=== PATIENT | female | born 1960 | race Caucasian/White ===

== ENCOUNTER 2017-09-19 19:32 | Emergency (ER) | payer BC ==
[2017-09-19] MEDS ORDERED: MORPHINE SULFATE 10 MG/ML INJ IM ONE (19:38)
--- NOTE | 2017-09-19 20:08 | RADIOLOGY REPORT (SQ) ---
EXAM DESCRIPTION: WRIST LEFT 3 VIEWS COMPLETED DATE/TIME: 09/19/2017 7:51 pm REASON FOR STUDY: SPORTS INJURY COMPARISON: None. NUMBER OF VIEWS: Three views. TECHNIQUE: AP, lateral, and oblique radiographic images acquired of the left wrist. LIMITATIONS: None. FINDINGS: MINERALIZATION: Normal. BONES: Comminuted impacted fracture of the distal radius with dorsal angulation. SOFT TISSUES: No soft tissue swelling. Several small radiopaque densities may represent particles on the skin. OTHER: No other significant finding. IMPRESSION: COMMINUTED IMPACTED FRACTURE OF THE DISTAL RADIUS. TECHNICAL DOCUMENTATION: JOB ID: [id number] [employer]- All Rights Reserved
[2017-09-19] MEDS ORDERED: ONDANSETRON HCL INJ/PF 4 MG/2 ML SDV IV ONE (20:09)
[2017-09-19] MEDS ORDERED: HYDROMORPHONE HCL INJ/PF 2 MG/ML AMPULE IV ONE (20:09)
[2017-09-19] MEDS ORDERED: KETAMINE HCL INJ 500 MG/10 ML VIAL IV ONE (20:10)
[2017-09-19] MEDS ORDERED: KETAMINE HCL INJ 500 MG/10 ML VIAL ONE (20:31)
--- NOTE | 2017-09-19 20:41 | ER Document Report ---
ED General - General Chief Complaint: Arm Pain Stated Complaint: WRIST INJURY Time Seen by Provider: 09/19/17 20:08 Notes: Patient is a 57-year-old female who presents with a left wrist injury. She sustained this when playing tennis. She states he jumped up, landed on the nat[place] court causing her feet to slip out from underneath her and fall onto an outstretched left hand. States she immediately developed a severe, constant, throbbing pain to the left wrist which has been present since that time. She is right-hand dominant. She has no history of prior injuries to her left wrist. States any attempt at moving the wrist significantly worsens the pain. She did receive IV pain medication by EMS and reports that this has improved her pain somewhat. She denies any additional injuries today. TRAVEL OUTSIDE OF THE [place] IN LAST 30 DAYS: No - Related Data Allergies/Adverse Reactions: No Known Allergies Allergy (Unverified 09/19/17 19:38) Past Medical History - General Information source: Patient - Social History Smoking Status: Never Smoker Frequency of alcohol use: None Drug Abuse: None Lives with: Spouse/Significant other Family History: Reviewed & Not Pertinent Patient has suicidal ideation: No Patient has homicidal ideation: No Renal/ Medical History: Denies: Hx Peritoneal Dialysis Review of Systems - Review of Systems Notes: Constitutional: Negative for fever. Eyes: Negative for visual changes. ENT: Negative for facial injury Cardiovascular: Negative for chest injury. Respiratory: Negative for shortness of breath. Gastrointestinal: Negative for abdominal injury. Genitourinary: Negative for genital injury Musculoskeletal: Positive for left wrist injury Skin: Negative for laceration/abrasions. Neurological: Negative for head injury. Physical Exam - Vital signs Vitals: Temp Pulse Resp BP Pulse Ox 97.5 F 112 H 15 158/95 H 96 09/19/17 19:40 09/19/17 19:40 09/19/17 19:40 09/19/17 19:40 09/19/17 19:40 Interpretation: Tachycardic Notes: PHYSICAL EXAMINATION: GENERAL: Appears to be in significant pain but no acute distress HEAD: Atraumatic, normocephalic. EYES: Pupils equal round and reactive to light, extraocular movements intact, sclera anicteric, conjunctiva are normal. ENT: nares patent, oropharynx clear without exudates. Moist mucous membranes. NECK: Normal range of motion, supple without lymphadenopathy LUNGS: Breath sounds clear to auscultation bilaterally and equal. No wheezes rales or rhonchi. HEART: Regular rate and rhythm without murmurs. 2+ radial pulse bilaterally. ABDOMEN: Soft, nontender, normoactive bowel sounds. No guarding, no rebound. No masses appreciated. EXTREMITIES: Obvious deformity of the left wrist with significant swelling. NEUROLOGICAL: RMU motor and sensory function is intact bilaterally. PSYCH: Normal mood, normal affect. SKIN: Warm, Dry, normal turgor, no rashes or lesions noted. Course - Re-evaluation Re-evalutation: 09/19/17 20:40 Patient presents with a comminuted distal radius fracture with an associated ulnar dislocation. RMU motor and sensory distribution is intact. 2+ radial pulse with capillary refill less than 1 second in all digits of the left hand. She is right-hand dominant. No additional injuries. Will reduce under fluoroscopy and procedural sedation. 09/19/17 21:48 Fracture and dislocation was successfully reduced at the bedside under fluoroscopy. Postreduction x-rays show significant improvement. She will require follow-up with orthopedic surgery given the comminuted nature of her fracture. She remains neurovascularly intact. At this time will discharge with return precautions and follow-up recommendations. Verbal discharge instructions given a the bedside and opportunity for questions given. Medication warnings reviewed. Patient is in agreement with this plan and has verbalized understanding of return precautions and the need for orthopedic follow-up in the next 24-72 hours. - Vital Signs Vital signs: Temp Pulse Resp BP Pulse Ox 97.5 F 112 H 12 168/85 H 99 09/19/17 19:40 09/19/17 19:40 09/19/17 22:11 09/19/17 22:11 09/19/17 22:11 - Diagnostic Test Radiology reviewed: Image reviewed, Reports reviewed Radiology results interpreted by me: 09/20/17 03:14 First wrist x-ray: Distal radius comminuted fracture and possible ulnar dislocation Postreduction x-ray: Improved anatomic alignment of the ulna and distal radius Procedures - Conscious Sedation Conscious sedation Time started: 21:05 Time completed: 21:16 Consent obtained: Yes Indication: Left wrist reduction Prior complications: Procedural sedation Normal healthy pt.: P1. 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 Medications administered: Ketamine Reversal agents: None I personally performed/intraservice time: Sedation, Procedure, 30 min or less Complications: No - Immobilization Left Wrist Time completed: 21:16 Pre-Proc Neuro Vasc Exam: Normal Immobilizer type: Sugar tong Performed by: Provider Post-Proc Neuro Vasc Exam: Normal Alignment checked and good: Yes - Joint Reduction/Fracture Care Left Wrist Time completed: 21:16 Consent obtained: Yes Conscious sedation: Yes Pre-procedure NV exam: Yes Fracture: Closed Manipulation comment: Hyper-extension, tractoin Post-procedure NV exam: Yes Post-reduction x-ray: Joint reduced Reduction attempts: 1 Complications: No Discharge - Discharge Clinical Impression: Fracture of left distal radius Qualifiers: Encounter type: initial encounter Fracture type: closed Fracture morphology: unspecified fracture morphology Qualified Code(s): S52.502A - Unspecified fracture of the lower end of left radius, initial encounter for closed fracture Condition: Good Disposition: HOME, SELF-CARE Additional Instructions: Your seen today for a fracture dislocation of your left wrist. This was reduced back to an appropriate position. However you need to follow-up with orthopedic surgery as this may require surgery to definitively fix. Please make an appointment within the next 1 week. Return to the emergency department immediately if you have increasing pain, discoloration of your hand, loss of sensation or motor function of your hand, or any other symptoms that are worrisome to you. For your pain: Take ibuprofen 600 mg and acetaminophen 1000 mg every 6 hours together as needed for pain. If this does not control your pain you may take 15 mg of oral morphine every 4 hours as needed. Please be very careful about using the oral morphine and only use this for severe pain. Prescriptions: Morphine Sulfate [Morphine Ir 15 mg Tablet] 15 mg PO Q4HP PRN #12 tablet PRN Reason: Referrals: HERNANDEZ ALFARO PA [Primary Care Provider] - Follow up as needed DONNY PHILLIPS MD [ACTIVE STAFF] - Follow up in 3-5 days
--- NOTE | 2017-09-19 21:45 | RADIOLOGY REPORT (SQ) ---
EXAM DESCRIPTION: WRIST LEFT 2 VIEWS COMPLETED DATE/TIME: 09/19/2017 9:32 pm REASON FOR STUDY: POST REDUCTION COMPARISON: 09/19/2017. NUMBER OF VIEWS: Two views. TECHNIQUE: AP and lateral radiographic images acquired of the left wrist. LIMITATIONS: None. FINDINGS: MINERALIZATION: Normal. BONES: Improved alignment of the fracture of the distal radius following closed reduction. SOFT TISSUES: No soft tissue swelling. No foreign body. OTHER: No other significant finding. IMPRESSION: IMPROVED ALIGNMENT OF THE FRACTURE OF THE DISTAL RADIUS FOLLOWING CLOSED REDUCTION. TECHNICAL DOCUMENTATION: JOB ID: [id number] [employer]- All Rights Reserved
[2017-09-19] MEDS ORDERED: KETOROLAC TROMETHAMINE INJ/PF 30 MG/1 ML SDV IV ONE (21:50)
[2017-09-19] MEDS ORDERED: HYDROCODONE/ACETAMINOPHEN 5-325 MG 6 TAB/DSPK PO PRN (21:50)
[2017-09-19 22:26] VITALS: BP 168/85
--- NOTE | 2017-09-19 23:53 | RADIOLOGY REPORT (SQ) ---
EXAM DESCRIPTION: WRIST LEFT 2 VIEWS; NO CHG FLUORO COMPLETED DATE/TIME: 09/19/2017 11:31 pm REASON FOR STUDY: CR LT WRIST COMPARISON: Earlier exam same date FLUOROSCOPY TIME: 5 seconds 4 images saved to PACS. TECHNIQUE: Images acquired during manipulation procedure to align fracture. NUMBER OF IMAGES: For LIMITATIONS: None. FINDINGS: Distal radius comminuted fracture appears in near anatomic alignment. IMPRESSION: Distal radius comminuted fracture appears in near anatomic alignment. COMMENT: Quality ID [id number]: Final reports for procedures using fluoroscopy that document radiation exp osure indices, or exposure time and number of fluorographic images (if radiation exposure indices are not available) Please consult full operative report of the attending physician for description of the procedure. TECHNICAL DOCUMENTATION: JOB ID: [id number] [employer]- All Rights Reserved
--- NOTE | 2017-09-19 23:53 | RADIOLOGY REPORT (SQ) ---
EXAM DESCRIPTION: WRIST LEFT 2 VIEWS; NO CHG FLUORO COMPLETED DATE/TIME: 09/19/2017 11:31 pm REASON FOR STUDY: CR LT WRIST COMPARISON: Earlier exam same date FLUOROSCOPY TIME: 5 seconds 4 images saved to PACS. TECHNIQUE: Images acquired during manipulation procedure to align fracture. NUMBER OF IMAGES: For LIMITATIONS: None. FINDINGS: Distal radius comminuted fracture appears in near anatomic alignment. IMPRESSION: Distal radius comminuted fracture appears in near anatomic alignment. COMMENT: Quality ID [id number]: Final reports for procedures using fluoroscopy that document radiation exp osure indices, or exposure time and number of fluorographic images (if radiation exposure indices are not available) Please consult full operative report of the attending physician for description of the procedure. TECHNICAL DOCUMENTATION: JOB ID: [id number] [employer]- All Rights Reserved
== END 2017-09-19 22:20 | disposition home or self-care (01) ==
LOC: ER 19:32
PROC: 0PSJXZZ Reposition Left Radius, External Approach (ICD-10-PCS; principal; 2017-09-19)
PROC: 0PSLXZZ Reposition Left Ulna, External Approach (ICD-10-PCS; 2017-09-19)
DX: S52.502A Unspecified fracture of the lower end of left radius, initial encounter for closed fracture (principal); S63.075A Dislocation of distal end of left ulna, initial encounter; W01.0XXA Fall on same level from slipping, tripping and stumbling without subsequent striking against object, initial encounter
CPT/HCPCS: 99284; 99152; 73100; 73110; 25605; J3490; J1885; J1170; J2405